=== PATIENT | male | born 1965 | race Caucasian/White ===

== ENCOUNTER → 2018-09-28 | Outpatient (CLI) | payer OTHER ==
[~2018-09-28] MED LIST: GASTROGRAFIN SOLUTION 30ML (Q9963) As Ordered; ISOVUE-370 76% 100ML VIAL (Q9967) As Ordered
== END ==
LOC: M RAD 12:10
DX: D72.829 Elevated white blood cell count, unspecified (principal); Z98.84 Bariatric surgery status
CPT/HCPCS: Q9963

== ENCOUNTER → 2021-11-08 | Outpatient (REF) | payer OTHER ==
[~2021-11-08] MED LIST changes: +ATOR1TAB21 PO; +CALC1TAB49 PO; +GABA-282 PO; -GASTROGRAFIN SOLUTION 30ML (Q9963) As Ordered; -ISOVUE-370 76% 100ML VIAL (Q9967) As Ordered; +LISI2.5T9 PO; +METF500T13 PO; +MULTCAP PO; +NESI25TA PO; +OMEP40CA5 PO; +STEG15TA PO; +VALA500T5 PO; +VARE1TA PO; +VITA2000 PO; +VITA500T17 PO
[2021-11-08 18:18] LABS: CREATININE, URINE < 13.0 MG/DL; MALB URINE SIEMENS < 5.0 MG/L
== END ==
LOC: M LAB REF 16:44
PROVIDERS: ATTEND Nurse Practitioner Family
DX: E11.9 Type 2 diabetes mellitus without complications (principal)

== ENCOUNTER → 2022-11-07 | Outpatient (REF) | payer OTHER, BC ==
[2022-11-07 18:08] LABS: CREATININE, URINE 25.2 MG/DL; MALB URINE SIEMENS < 3.0 MG/DL; MAU/CREAT RATIO 11.9 MCG/MG (0.0-30.0)
== END ==
LOC: M LAB REF 17:01
PROVIDERS: ATTEND Nurse Practitioner Family
DX: E11.9 Type 2 diabetes mellitus without complications (principal)

== ENCOUNTER → 2023-11-06 | Outpatient (REF) | payer OTHER, BC ==
[2023-11-06 16:24] LABS: CREATININE, URINE 13.7 MG/DL; MALB URINE SIEMENS < 3.0 MG/L; MAU/CREAT RATIO 21.8 MCG/MG (0.0-30.0)
== END ==
LOC: M LAB REF 15:38
PROVIDERS: ATTEND Nurse Practitioner Family
DX: E11.9 Type 2 diabetes mellitus without complications (principal)

== ENCOUNTER → 2024-03-25 | Outpatient (CLI) | payer OTHER | LOC: M RAD 13:55 | PROVIDERS: ATTEND Family Medicine | DX: Z12.2 Encounter for screening for malignant neoplasm of respiratory organs (principal); F17.210 Nicotine dependence, cigarettes, uncomplicated; I70.0 Atherosclerosis of aorta; I25.10 Atherosclerotic heart disease of native coronary artery without angina pectoris; Z98.84 Bariatric surgery status; Z90.49 Acquired absence of other specified parts of digestive tract; J47.9 Bronchiectasis, uncomplicated ==

== ENCOUNTER 2025-10-23 08:51 | Day surgery (SDC) | payer BC ==
[~2025-10-23] VITALS: Ht 182.9 cm; Wt 111.1 kg
[~2025-10-23 08:51] MED LIST changes: +ASPI325T57 PO; +ATOR40TA75 PO; +D3 H2000 PO; +GABA-1172 PO; +GABA-1490 PO; -GABA-282 PO; +JARD1TAB PO; +METO1TAB87 PO; +MIDAZOLAM INJ 2 MG/2 ML VIAL As Ordered ONE; +PHENYLEPHRINE 10% OPHTH SOL 5ML OS PRN; +THERTAB52 PO; +TRAD5TAB PO; +VALA-3 PO; -VITA500T17 PO; +VITA500T8 PO
[2025-10-23] MEDS: LIDOCAINE 3.5% 1 ML OPHTH TOPICAL GEL OU ONE (10:19)
[2025-10-23] MEDS: OFLOXACIN 0.3 % (OCUFLOX) OPTH SOL 5ML OS ONE (10:19)
[2025-10-23] MEDS: TROPICAMIDE 1% OPHTH SOLN 15ML OS SCH (10:20)
[2025-10-23] MEDS: CYCLOPENTOLATE 1% OPHTH SOLN 2 ML BTL OS SCH (10:20)
[2025-10-23] MEDS: PHENYLEPHRINE 2.5% OPHTH SOL 2ML OS SCH (10:20)
[2025-10-23] MEDS: CEFUROXIME 1 MG/0.1 ML INTRACAMERAL INJ As Ordered ONE (11:05)
[2025-10-23] MEDS: LIDOCAINE 1% SDV 5 ML VIAL As Ordered ONE (11:05)
[2025-10-23 11:14] VITALS: BP 115/56; TEMP 96.3; O2SAT 96
== END 2025-10-23 11:35 | disposition home or self-care (01) ==
LOC: M SDC 08:51
PROVIDERS: ATTEND Ophthalmology
DX: E11.36 Type 2 diabetes mellitus with diabetic cataract (principal); H25.12 Age-related nuclear cataract, left eye; I10 Essential (primary) hypertension; I25.10 Atherosclerotic heart disease of native coronary artery without angina pectoris; E78.00 Pure hypercholesterolemia, unspecified; F17.210 Nicotine dependence, cigarettes, uncomplicated; Z79.899 Other long term (current) drug therapy; Z79.82 Long term (current) use of aspirin; Z79.84 Long term (current) use of oral hypoglycemic drugs; Z95.1 Presence of aortocoronary bypass graft; Z88.1 Allergy status to other antibiotic agents; Z90.49 Acquired absence of other specified parts of digestive tract
CPT/HCPCS: 66984; J0697; J2250; J3010

== ENCOUNTER 2025-11-06 06:45 | Day surgery (SDC) | payer BC ==
[~2025-11-06] VITALS: Ht 185.4 cm; Wt 113.0 kg
[~2025-11-06 06:45] MED LIST changes: -MIDAZOLAM INJ 2 MG/2 ML VIAL As Ordered ONE; +PHENYLEPHRINE 10% OPHTH SOL 5ML OD PRN; -PHENYLEPHRINE 10% OPHTH SOL 5ML OS PRN
[2025-11-06] MEDS ORDERED: MIDAZOLAM INJ 2 MG/2 ML VIAL As Ordered ONE (07:34)
[2025-11-06] MEDS: OFLOXACIN 0.3 % (OCUFLOX) OPTH SOL 5ML OD ONE (08:16)
[2025-11-06] MEDS: LIDOCAINE 3.5% 1 ML OPHTH TOPICAL GEL OU ONE (08:16)
[2025-11-06] MEDS: TROPICAMIDE 1% OPHTH SOLN 15ML OD SCH (08:17)
[2025-11-06] MEDS: PHENYLEPHRINE 2.5% OPHTH SOL 2ML OD SCH (08:17)
[2025-11-06] MEDS: CYCLOPENTOLATE 1% OPHTH SOLN 2 ML BTL OD SCH (08:17)
[2025-11-06] MEDS ORDERED: GLUCOSE 4 GM CHEW PO PRN (08:30)
[2025-11-06] MEDS ORDERED: GLUCAGON INJ 1 MG VIAL SC PRN (08:30)
[2025-11-06] MEDS ORDERED: DEXTROSE 50% 50 ML SYRINGE IV PRN (08:30)
[2025-11-06] MEDS: INSULIN LISPRO (NovoLOG) PER UNIT SC PRN (08:40)
[2025-11-06] MEDS: LIDOCAINE 1% SDV 5 ML VIAL As Ordered ONE (09:17)
[2025-11-06] MEDS: BSS IRRIG/VANCO(10MG)/TOBRA(5MG)/EPINEPH(1:1000-0.5CC)500ML BAG-ORONLY As Ordered ONE (09:18)
[2025-11-06] MEDS: CEFUROXIME 1 MG/0.1 ML INTRACAMERAL INJ As Ordered ONE (09:18)
[2025-11-06 09:23] VITALS: BP 114/56; TEMP 96.7; O2SAT 98
== END 2025-11-06 09:45 | disposition home or self-care (01) ==
LOC: M SDC 06:45
PROVIDERS: ATTEND Ophthalmology
DX: H25.11 Age-related nuclear cataract, right eye (principal); E11.36 Type 2 diabetes mellitus with diabetic cataract; I10 Essential (primary) hypertension; I25.10 Atherosclerotic heart disease of native coronary artery without angina pectoris; E78.00 Pure hypercholesterolemia, unspecified; Z79.899 Other long term (current) drug therapy; Z79.82 Long term (current) use of aspirin; Z79.84 Long term (current) use of oral hypoglycemic drugs; Z98.84 Bariatric surgery status; Z90.49 Acquired absence of other specified parts of digestive tract; Z98.42 Cataract extraction status, left eye; Z88.1 Allergy status to other antibiotic agents; Z95.1 Presence of aortocoronary bypass graft
CPT/HCPCS: 66984; J0697; J1815; J2250; J3010; V2632